=== PATIENT | female | born 1950 | race Caucasian/White ===

== ENCOUNTER → 2019-10-04 10:45 | Outpatient (CLI) | payer OTHER, SELFPAY ==
--- NOTE | 2019-10-04 10:55 | BD_ITS ---
STUDY: DUAL ENERGY X-RAY ABSORPTIOMETRY / DXA REASON FOR EXAM: Female, 69 years old. The patient is postmenopausal. Loss of height. TECHNIQUE: Bone Mineral Density (BMD) measurements of lumbar spine and bilateral hips were obtained. COMPARISON: None. FINDINGS: Lumbar Spine (L1-L4): g/cm2 (0.875) / T-score (-2.7) / Z-score (-1.1) Findings are suggestive of osteoporosis with a high fracture risk. Left Femur Total: g/cm2 (0.719) / T-score (-2.3) / Z-score (-1.0) Left Femoral Neck: g/cm2 (0.709) / T-score (-2.4) / Z-score (-0.8) Right Femur Total: g/cm2 (0.690) / T-score (-2.5) / Z-score (-1.2) Right Femoral Neck: g/cm2 (0.748) / T-score (-2.1) / Z-score (-0.5) BD/Dexa Bone Density Study IMPRESSION: The patient is considered osteoporotic as outlined below according to World [employer] Organization (WHO) criteria with a high fracture risk. Reference Information: The T-score is the number of standard deviations above or below the standard which is normal for young adults at their peak bone mineral density. The World Health Organization (WHO) interprets the T-scores as follows: Above -1 Normal bone density Between -1 and -2.5 Osteopenia Equal to / or below -2.5 Osteoporosis As a practical clinical guideline, osteopenia may be graded as follows: Mild -1 through -1.5 Moderate -1.6 through -2.0 Severe -2.1 through -2.4 The Z-score is the number of standard deviations above or below age-matched controls. A Z-score of less than -1.5 would be considered abnormal. References: 1. NIH Osteoporosis and Related Bone Diseases http://www.osteo.org 2. International Society for Clinical Densitometry http://www.iscd.org 3. National Osteoporosis Foundation http://www.nof.org Electronically Signed: Gallito Quiroga, at 13:40 EST , Service support ,
== END ==
PROVIDERS: Family Provider Nurse Practitioner; PCP Nurse Practitioner; Referring Provider Nurse Practitioner; Visit Provider Nurse Practitioner
DX: Z78.0 Asymptomatic menopausal state (principal)
CPT/HCPCS: 77080

== ENCOUNTER 2022-03-10 14:21 | Outpatient (RCR) | payer OTHER, SELFPAY ==
--- NOTE | 2022-03-11 07:30 | HP.OTEVAL_ITS ---
Patient's Visit Information PAO JUSTIN is a 71 year old F, referred to Occupational Therapy by Dr. Sami Ovalles MD, with a diagnosis of palmar fascial fibromatosis. Date of Evaluation: 03/10/22 Occupational Therapist: Cat East, OTR/L, CHT - Subjective Pt. is a 71 y/o female, She noticed her hand tightening about 5 years ago and it got worse. Pt. reported having Xiaflex injection and manipulation on Thursday03-07-22, 3 days ago. Pt. reporting she has been stretching hand over the weekend. Pt. reported she is here for the exercises and hand orthoses only and does not want continued OT services. - Pain Right Hand 0 - ROM Wrist: R 50*/105* L45/100 MP: R -25/60, -25/65, -25/60, 1080 PIP: R 13/85, +5/95, +10/97, -/ DIP: R 5/80,+15 /72, +20/70, +/75 ROM Comments: Full ROM of L hand Left LF PIP -25 extension, pt. reported that this happened a long time ago. 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 Goal:: pt will demo understanding of her HEP by endo of evaluation. - Rehabilitation General Assessment: Pt. was referred by Dr. Ovalles for palmar fascial fibromatosis and had Xiaflex injection and manipulation on 03-07-22 (3 days ago). Educated pt. on HEP and provided HEP. She has deficits in extension of R digits, which leads to difficulty with ADL, IADL tasks. She has benefitted from CHT services to get custom paddle orthosis and HEP for home to improve R digit extension. Pt. demo'd exercises and verbalized understanding of HEP. Pt. de clining further need for OT services at this time. Rehabilitation Potential: Fair - Anticipated Interventions Early Active Motion, Orthoses, Joint Protection/Energy Conservation, Fine Motor Coord/Deuce, Education re Skin Care and Precautions, Education re Self Massage Techniques - Visit Plan General Plan: Eval only. CHT provided pt. with a custom orthoses (paddle splint) TEXT: Thank you for the opportunity to evaluate your patient. For Medicare and Medicare HMO plans, please review the plan of care and approve it. It will need to be FAXED BACK to us at [phone] for Medicare purposes. Please let me know if there are questions or concerns regarding this plan of care. Physician Signature: Date:
--- NOTE | 2022-03-13 14:28 | HP.OTEVAL ---
Patient's Visit Information PAO JUSTIN is a 71 year old F, referred to Occupational Therapy by Dr. Sami Ovalles MD, with a diagnosis of palmar fascial fibromatosis. Date of Evaluation: 03/10/22 Occupational Therapist: Cat East, OTR/L, CHT - Subjective Pt. is a 71 y/o female, She noticed her hand tightening about 5 years ago and it got worse. Pt. reported having Xiaflex injection and manipulation on Thursday03-07-22, 3 days ago. Pt. reporting she has been stretching hand over the weekend. Pt. reported she is here for the exercises and hand orthoses only and does not want continued OT services. - Pain Right Hand 0 - ROM Wrist: R 50*/105* L45*/100* MP: R IF 0/80, MF -25/60, RF -25/65 LF -25/60 PIP: R IF 0/85, MF -5/95, RF -10/97, LF -10/76 DIP: R IF -5/80, MF -15/72, IF-20/70, LF-5/75 ROM Comments: Full ROM of L hand Left LF PIP -25 extension, pt. reported that this happened a long time ago. 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 Goal:: pt will demo understanding of her HEP by endo of evaluation. - Rehabilitation General Assessment: Pt. was referred by Dr. Ovalles for palmar fascial fibromatosis and had Xiaflex injection and manipulation on 03-07-22 (3 days ago). Educated pt. on HEP and provided HEP. She has deficits in extension of R digits, which leads to difficulty with ADL, IADL tasks. She has benefitted from CHT services to get custom paddle orthosis and HEP for home to improve R digit extension. Pt. demo'd exercises and verbalized understanding of HEP. Pt. declining further need for OT services at this time. pt was advised to return to clinic for orthosis adj. as needed for comfort pt demo understanding. Therapy session was directly supervised and doc. reviewed and approved by Cat East OTR/L,CHT Rehabilitation Potential: Fair - Anticipated Interventions Early Active Motion, Orthoses, Joint Protection/Energy Conservation, Fine Motor Coord/Deuce, Education re Skin Care and Precautions, Education re Self Massage Techniques - Visit Plan General Plan: Eval only. CHT provided pt. with a custom orthoses (paddle splint). TEXT: Thank you for the opportunity to evaluate your patient. For Medicare and Medicare HMO plans, please review the plan of care and approve it. It will need to be FAXED BACK to us at [phone] for Medicare purposes. Please let me know if there are questions or concerns regarding this plan of care. Physician Signature: Date:
--- NOTE | 2022-09-03 12:54 | HP.OTDCSUM ---
It has been my pleasure to treat PAO JUSTIN under orders from Dr. Sami Ovalles MD, for the diagnosis of palmar fascial fibromatosis for a total of 1 visit(s). Please see the following information for a summary of their discharge status. Objective/Function: Pt. has tightness through palm of R hand. pt was seen for initial OT eval pt did not return for further sessions. pt d.c at this time due to time lapse in services. Patient Goals: Regain Mobility, Regain Strength, Decrease Swelling/Stiffness, Improve Fine Motor Skills, Use Hand/Wrist/Arm Normally Again, Increase ROM, Be More Independent in ADLS, Resume Former Household Responsibilities (Cooking,Cleaning,Yard, etc.) Goal:: pt demo understanding of orthosis use and skin precautions by end of session. Goal:: pt will demo understanding of her HEP by endo of evaluation. If there are questions or concerns regarding this patient's occupational therapy, please fell free to call me at [phone]. Thank you for the referral of this patient. Sincerely, Cat East, OTR/L, CHT
== END 2022-03-10 19:00 | disposition home or self-care (01) ==
LOC: OT 14:21
PROVIDERS: PCP Nurse Practitioner; Referring Provider Orthopaedic Surgery; Visit Provider Orthopaedic Surgery
DX: M72.0 Palmar fascial fibromatosis [Dupuytren] (principal)
CPT/HCPCS: 97166; 97760

== ENCOUNTER → 2023-08-18 | Outpatient (CLI) | payer OTHER, SELFPAY ==
--- NOTE | 2023-08-18 09:24 | BD_ITS ---
STUDY: DUAL ENERGY X-RAY ABSORPTIOMETRY / DXA REASON FOR EXAM: Female, 73 years old. 733.00OsteoporosisBONE DENSITY REASON FOR EXAM TECHNIQUE: Bone Mineral Density (BMD) measurements of lumbar spine and bilateral hips were obtained. COMPARISON: Comparison is made with prior study dated October 04, 2019. FINDINGS: Lumbar Spine (L1-L4): g/cm2 (0.726) / T-score (-2.9) / Z-score (-0.7) Findings are suggestive of osteoporosis with a high fracture risk. Left Femur Total: g/cm2 (0.624) / T-score (-2.6) / Z-score (-1.0) Left Femoral Neck: g/cm2 (0.558) / T-score (-2.6) / Z-score (-0.8) Right Femur Total: g/cm2 (0.609) / T-score (-2.7) / Z-score (-1.2) Right Femoral Neck: g/cm2 (0.596) / T-score (-2.3) / Z-score (-0.4) The T-Scores on the most recent prior examination were: Lumbar Spine (L1-L4): There has been worsening of bone density since the previous examination. Left Femur Total: which represents a worsening of 5.7%. Right Femur Total: which represents a worsening of 3.8%. BD/Dexa Bone Density Study IMPRESSION: The patient is considered osteoporotic as outlined below according to World [employer] Organization (WHO) criteria with a high fracture risk. There has been worsening of bone density since the previous examination. Reference Information: The T-score is the number of standard deviations above or below the standard which is normal for young adults at their peak bone mineral density. The World Health Organization (WHO) interprets the T-scores as follows: Above -1 Normal bone density Between -1 and -2.5 Osteopenia Equal to / or below -2.5 Osteoporosis As a practical clinical guideline, osteopenia may be graded as follows: Mild -1 through -1.5 Moderate -1.6 through -2.0 Severe -2.1 through -2.4 The Z-score is the number of standard deviations above or below age-matched controls. A Z-score of less than -1.5 would be considered abnormal. References: 1. NIH Osteoporosis and Related Bone Diseases www osteo.org 2. International Society for Clinical Densitometry www iscd.org 3. National Osteoporosis Foundation www nof.org Electronically Signed: Gallito Quiroga MD at 8:26 EDT ,
== END | disposition home or self-care (01) ==
LOC: OPBD 09:19
PROVIDERS: PCP Nurse Practitioner Family; Referring Provider Nurse Practitioner Family; Visit Provider Nurse Practitioner Family
DX: M81.0 Age-related osteoporosis without current pathological fracture (principal)
CPT/HCPCS: 77080

== ENCOUNTER 2024-01-15 09:43 | Outpatient (CLI) | payer OTHER, SELFPAY ==
[2024-01-15 09:53] VITALS: BP 101/68; PULSE 78; RESP 16; TEMP 35.7; O2SAT 99; BMI 21.4
[2024-01-15] MEDS: 0.9% NaCl Peripheral Flush Adult/Peds IV (10:05)
[2024-01-15] MEDS: Zoledronic Acid 5 MG 100 ML 300 MG IV (10:07)
[2024-01-15 10:31] VITALS: BP 97/64; PULSE 70; RESP 16; TEMP 36
== END 2024-01-15 09:44 | disposition home or self-care (01) ==
PROVIDERS: PCP Nurse Practitioner Family; Referring Provider Nurse Practitioner Family; Visit Provider Nurse Practitioner Family
DX: M81.0 Age-related osteoporosis without current pathological fracture (principal)
CPT/HCPCS: 96365; A4216; J3489

== ENCOUNTER → 2025-08-24 | Outpatient (CLI) | payer OTHER, SELFPAY ==
--- NOTE | 2025-08-24 14:00 | BD_ITS ---
PROCEDURE: DEXA BONE DENSITY STUDY 08/24/2025 REASON FOR EXAM: F, age 75 y/o . Postmenopausal. TECHNIQUE: Procedure Code: BDDBD Modality: DX Procedure: DEXA BONE DENSITY STUDY COMPARISON: Prior study dated August 18, 2023. FINDINGS: BMD and T-SCORES Lumbar spine: 0.780 g/cm2, T-score -2.4 Levels: L1 through L4 Change from prior: Improvement of 7.5%. Left femoral neck: 0.688 g/cm2, T-score -1.5 Femoral neck comparison data not recommended for monitoring change. Delete Left total hip: 0.606 g/cm2, T-score -2.8 Change from prior: Loss of 2.9%. Right femoral neck: 0.657 g/cm2, T-score -1.7 Femoral neck comparison data not recommended for monitoring change. Right total hip: 0.614 g/cm2, T-score -2.7 Change from prior: Improvement of 0.9%. The World Health Organization has defined the following categories based on bone density: Normal bone density: T-score equal to or greater than -1.0 Osteopenia: T-score between -1.0 and -2.5 Osteoporosis: T-score equal to or less than -2.5 FRAX (or Comparable) Fracture Risk Assessment: 10 Year Probability of Fracture: Major Osteoporotic Fracture: 10% Hip Fracture: 2.2% (Note: FRAX is not to be reported in setting of normal range bone density, osteoporosis on DEXA, known history of osteoporosis, prior osteoporotic hip or vertebral fracture, or for any patient undergoing pharmacological treatment for bone loss.) The National Osteoporosis Foundation (NOF) recommends pharmacological treatment for patients with a FRAX 10-year risk of 3% or higher for a hip fracture, or 20% or higher for a major osteoporotic fracture, to prevent osteoporosis and reduce fracture risk. The patient does meet the pharmacological treatment recommendations for prevention of osteoporosis. BD/Dexa Bone Density Study IMPRESSION: OSTEOPOROSIS. Recommend follow-up as clinically warranted. Reading Location: [place] [id number]
== END | disposition home or self-care (01) ==
LOC: OPBD 13:59
PROVIDERS: PCP Internal Medicine; Referring Provider Internal Medicine; Visit Provider Internal Medicine
DX: Z78.0 Asymptomatic menopausal state (principal)
CPT/HCPCS: 77080

== ENCOUNTER → 2025-09-12 | Outpatient (CLI) | payer OTHER, SELFPAY ==
[2025-09-12 10:04] LABS: Hematocrit 41.6 % (37-47); Hemoglobin 14.0 g/dL (12.0-15.0); Immature Granulocytes Count 0.010 X10^3/uL (0.0-0.0); Mean Corp Hgb Conc 33.7 g/dL (32-36); Mean Corpuscular Volume 91.4 fL (81-99); Mean Platelet Vol. 11.2 fl (6.2-12.0); NRBC Flagged by Analyzer 0 % (0-5); Platelet Count 252 K/mm3 (150-450); RBC Distribution Width CV 12.1 % (11.6-14.6); RBC Distribution Width SD 40.7 fl (35.1-43.9); Red Blood Count 4.55 M/mm3 (4.2-5.4); White Blood Count 5.3 K/mm3 (4.4-11.0)
[2025-09-12 10:43] LABS: AST(SGOT) 21 U/L (<=31); Alanine Aminotransfer ALT/SGPT 14 U/L (<=34); Albumin, Serum 4.2 g/dL (3.4-4.8); Alkaline Phosphatase 75 U/L (35-104); Anion Gap 9 (5-15); BUN 13 mg/dL (4-19); BUN/Creat Ratio 13.8 RATIO (10-20); Calcium,Total 9.1 mg/dL (7.6-11.0); Carbon Dioxide 26.5 mmol/L (21.0-32.0); Chloride 103 mmol/L (98-108); Cholesterol 165 mg/dL (<=200); Free T3 2.9 pg/mL (2.18-3.98); Globulin 2.7 g/dL (2.2-4.2); Glucose 92 mg/dL (70-99); Low Density Lipoprotein Calc. 94 mg/dL; Potassium 4.0 mmol/L (3.3-5.1); Triglycerides 101 mg/dL; Very Low Density Lipoprotein 20 mg/dL (5-40); Vitamin D,25 Hydroxy 50.8 ng/mL (30-100); cholesterol:hdl ratio screen 3.15
== END | disposition home or self-care (01) ==
LOC: CIMLAB 08:05
PROVIDERS: PCP Internal Medicine; Referring Provider Internal Medicine; Visit Provider Internal Medicine
DX: E55.9 Vitamin D deficiency, unspecified (principal); E78.00 Pure hypercholesterolemia, unspecified; E03.9 Hypothyroidism, unspecified
CPT/HCPCS: 36415; 80053; 80061; 82306; 84439; 84443; 84481; 85025